=== PATIENT | male | born 1965 | race Asian ===

== ENCOUNTER 2017-08-15 20:13 | Emergency (ER) | payer BC ==
[2017-08-15 20:26] VITALS: BP 133/72
--- NOTE | 2017-08-15 20:54 | UC ---
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 patient states was unable to walk due to pain, put ice on for 45 minutes, pain improved but still unable to bear weight, came to . unable to take NSAIDS due to heart racing, "turning yellow". - History of Current Complaint Hx Obtained From: Patient Onset/Duration: Sudden Onset, Lasting Hours Severity Initially: Severe Severity Currently: Moderate <Jane Enrique - Last Filed: 08/16/17 23:33> <Zenaida Patterson - Last Filed: 08/17/17 07:59> - History of Current Complaint Chief Complaint: UCLowerExtremity Stated Complaint: KNEE INJURY Time Seen by Provider: 08/15/17 20:27 - Allergies/Home Medications Allergies/Adverse Reactions: Allergies Allergy/AdvReac Type Severity Reaction Status Date / Time Aspirin Allergy Nausea Verified 08/15/17 20:26 Latex Allergy See Comment Verified 08/15/17 20:26 NSAIDs Allergy Headache Verified 08/15/17 20:26 Penicillins Allergy Unknown Verified 08/15/17 20:26 Reaction Details PMH/Surg Hx/FS Hx/Imm Hx Previously Healthy: Yes - allergy to NSAIDs - Surgical History Surgical History: None - Social History Alcohol Use: Daily Substance Use Type: None Smoking Status (MU): Never Smoked Tobacco <Jane Enrique - Last Filed: 08/16/17 23:33> Review of Systems Musculoskeletal: Arthralgia, Myalgia, Other: - pain with standing Is Patient Immunocompromised?: No All Other Systems Reviewed And Are Negative: Yes <Jane Enrique - Last Filed: 08/16/17 23:33> Physical Exam Triage Information Reviewed: Yes Appearance: Well-Appearing, No Pain Distress, Well-Nourished Vital Signs: Initial Vital Signs Temp 36.6 C 08/15/17 20:19 Pulse 66 08/15/17 20:19 Resp 16 08/15/17 20:19 BP 133/72 08/15/17 20:19 Pulse Ox 96 08/15/17 20:19 Eyes: Positive: Conjunctiva Clear Musculoskeletal: Positive: Strength Intact - R LE, No Edema - R knee, Other: - neg ACL, PCL testing; achillies intact; no joint effusion noted, no bruising, neg instability/ pain with sena/ indra stress, PT 2+ b/l, neg homans, no posterior knee pain, neg apley, mild + pain @ MJL, neg LJL tenderness. neg patellar grind, neg patellar apprehe. Neurological Exam: Normal Neurological: Positive: Other: - sensation intact to light touch R LE Psychological Exam: Normal Skin Exam: Normal Skin: Positive: Other - no rashes, no breakdown, no warmth, tenderness. <Jane Enrique - Last Filed: 08/16/17 23:33> Vital Signs: Initial Vital Signs Temp 97.9 F 08/15/17 20:19 Pulse 66 08/15/17 20:19 Resp 16 08/15/17 20:19 BP 133/72 08/15/17 20:19 Pulse Ox 96 08/15/17 20:19 <Zenaida Patterson - Last Filed: 08/17/17 07:59> Lower Extremity Course/Dx - Course Course Of Treatment: radiograph- neg for fracture, immobilizer placed, given crutches, follow up with ortho within 2-3 days if no improvement. RICE, tylenol for pain, crutches, immobilizer - Differential Dx/Diagnosis Differential Diagnosis/HQI/PQRI: Contusion, Sprain, Strain, Tendonitis Provider Diagnoses: possible meniscal tear, actue knee pain left <Jane Enrique - Last Filed: 08/16/17 23:33> Discharge <Jane Enrique - Last Filed: 08/16/17 23:33> <Zenaida Patterson - Last Filed: 08/17/17 07:59> - Discharge Plan Condition: Good Disposition: HOME Patient Education Materials: Knee Pain (ED), RICE Therapy (ED) Referrals: Parminder Martinez MD [Primary Care Provider] - Miguel Costa MD [Medical Doctor] - (Or a doctor with knee experience within the group ) Additional Instructions: - Increase rest over next 48 hours - Call orthopedist and make appointment if no improvement within 24 hours - Increase rest, elevate, ice - Tylenol as needed for pain - weight bearing as tolerated, crutches as needed - Knee immobilizer for support when ambulatory - reutrn to ER with increased swelling, redness, hot joint, fever. Attestation Statement User Type: Provider - I was available for consult. This patient was seen by the SADE. The patient was not presented to, seen by, or examined by me. -Flip <Zenaida Patterson - Last Filed: 08/17/17 07:59>
--- NOTE | 2017-08-15 21:18 | RAD ---
Indication: Sudden onset RIGHT knee pain and inability to bear weight; occurred when walking downstairs. Comparison: None. Technique: RIGHT knee: AP, tunnel, lateral, sunrise views. Report: Negative for joint effusion, fracture, or malalignment. Minimal osteophytosis at the patellofemoral joint. Negative for significant joint space narrowing. Small focus of amorphous calcification approximating the periphery of the lateral femoral condyle along the expected course of the popliteus tendon. Unremarkable soft tissue contours. IMPRESSION: 1. Kellgren and Leo grade 1 osteoarthritis. 2. Suggestion of calcific tendinopathy at the popliteus tendon.
== END 2017-08-15 21:38 | disposition home or self-care (01) ==
LOC: UCEAST 20:13
DX: M25.562 Pain in left knee (principal); M17.11 Unilateral primary osteoarthritis, right knee; Z88.0 Allergy status to penicillin; Z88.6 Allergy status to analgesic agent; Z91.040 Latex allergy status
CPT/HCPCS: 99213; G0463